=== PATIENT | male | born 1975 | race Caucasian/White ===

== ENCOUNTER → 2016-07-30 | Outpatient (CLI) | payer OTHER ==
[~2016-07-30] MED LIST: CITA20TA4 PO; CITA40TA12 PO; CLON1TAB3 PO; DIPH25CA65 PO; LTHSR450 PO; TRAZ100T29 PO
[2016-07-30 17:31] LABS: BASO % 0.6 %; BASO ABS # 0.04 K/uL (0-0.2); COMPLETE YES; EOS % 2.4 %; HEMATOCRIT 42.8 % (42-52); IG% 0.3 %; LYMPH % 26.7 %; LYMPH ABS # 1.88 K/uL (1.2-3.4); MEAN CELL VOLUME 93.9 fL (80-100); MEAN CORPUSCULAR HEMOGLOBIN 31.8 pg (25-34); MEAN CORPUSCULAR HGB CONC 33.9 g/dl (32-36); MEAN PLATELET VOLUME 11.7 fL (7.4-10.4); PLATELET COUNT 168 K/uL (130-400); RED BLOOD COUNT 4.56 M/uL (4.7-6.1); WHITE BLOOD COUNT 7.05 K/uL (4.8-10.8)
[2016-07-30 17:59] LABS: ALT/SGPT 30 U/L (12-78); AST/SGOT 15 U/L (15-37); BLOOD UREA NITROGEN 13 mg/dl (7-18); BUN/CREATININE RATIO 9.6 (10-20); CALCIUM 9.4 mg/dl (8.5-10.1); CARBON DIOXIDE 28 mmol/L (21-32); CHLORIDE 108 mmol/L (98-107); GLUCOSE 94 mg/dl (70-99); POTASSIUM 4.5 mmol/L (3.5-5.1); SODIUM 141 mmol/L (136-145)
[2016-07-30 18:10] LABS: ALB/GLOB RATIO 1.7 (0.9-2); ALKALINE PHOSPHATASE 54 U/L (45-117)
== END | disposition home or self-care (01) ==
LOC: C.LABBFT 14:57
PROVIDERS: ATTEND Internal Medicine
DX: R19.7 Diarrhea, unspecified (principal); Z79.899 Other long term (current) drug therapy; Z51.81 Encounter for therapeutic drug level monitoring

== ENCOUNTER → 2016-08-10 | Outpatient (CLI) | payer OTHER ==
[2016-08-17 13:43] LABS: O&P SOURCE OTHER-STOOL
== END | disposition home or self-care (01) ==
LOC: C.LABSPEC 17:40
PROVIDERS: ATTEND Internal Medicine
DX: R19.7 Diarrhea, unspecified (principal)

== ENCOUNTER → 2016-08-19 | Outpatient (CLI) | payer OTHER ==
[2016-08-24 14:30] LABS: IGA SERUM 141 mg/dL (81-463); TIS TRANS IGA 1 U/mL (<4)
== END | disposition home or self-care (01) ==
LOC: C.LAB1850 12:17
PROVIDERS: ATTEND Internal Medicine
DX: F17.210 Nicotine dependence, cigarettes, uncomplicated (principal)

== ENCOUNTER → 2016-08-27 | Day surgery (SDC) | payer OTHER ==
[2016-08-26 15:34] VITALS: Ht 182.9 cm; Wt 83.6 kg
[~2016-08-27] VITALS: Ht 182.9 cm; Wt 83.6 kg
[~2016-08-27] MED LIST changes: -CITA20TA4 PO; -DIPH25CA65 PO; +LIDOCAINE HCL 2% 2 ML VIAL (20MG/ML) ONE; +PROPOFOL IV EMULSION 10 MG/ML 20 ML VIAL IV ONE
--- NOTE | 2016-08-27 08:58 | Endo History and Physical ---
History & Physical Date of Service: Aug 27, 2016. Chief Complaint: Diarrhea, Change in bowel habits Referring Physician: Dr. Romo History of Present Illness 41 yo CM who presents for colonoscopy secondary to diarrhea and change in bowel habits. Past Surgical History Hx Cardiac Surgery: No Hx Internal Defibrillator: No Hx Pacemaker: No Hx Abdominal Surgery: Yes (RT/LEFT INGUINAL HERNIA) Hx of Implantable Prosthesis: No Hx Post-Op Nausea and Vomiting: No Hx Cancer Surgery: No Hx Thoracic Surgery: No Hx Orthopedic: Yes (LEFT THUMB REPAIR) Hx Urinary Tract Surgery: No Family History None Social History Smoking Status: Current Every Day Smoker Hx Substance Use: No Hx Alcohol Use: No (QUIT DRINKING 7 MONTHS AGO) Allergies Coded Allergies: No Known Allergies (Verified , 08/27/16) Current Medications Reported Home Medications Medications Dose Route/Sig Max Daily Dose Days Date Category Klonopin (Clonazepam) 1 Mg Tab 1 Mg PO TID 08/26/16 Reported Trazodone (Trazodone HCl) 100 Mg Tab 200 Mg PO HS 08/26/16 Reported [place] Carbonate ER ([place] Carbonate) 450 Mg Tabcr 1 Tab PO BID 08/26/16 Reported Celexa (Citalopram Hydrobromide) 40 Mg Tab 40 Mg PO QAM 08/26/16 Reported Vital Signs Weight (Kilograms): 83.64 Height (Feet): 6 Height (Inches): 0 Physical Exam General Appearance: WD/WN, no apparent distress Respiratory/Chest: Auscultation: breath sounds normal Cardiovascular: Heart Auscultation: RRR Abdomen: Bowel Sounds: normal Inspection & Palpation: soft, non-distended, no tenderness, guarding & rebound Assessment and Plan Assessment: 41 yo CM who presents for colonoscopy secondary to diarrhea and change in bowel habits. Plan: Proceed with colonoscopy.
--- NOTE | 2016-08-27 10:27 | Discharge Instructions ---
Endoscopy Patient Instructions Date / Procedure(s) Performed Aug 27, 2016. Colonoscopy Allergy Information Coded Allergies: No Known Allergies (Verified , 08/27/16) Discharge Date / Findings Aug 27, 2016. Random colon biopsies Stool studies Medication Instructions Random colon biopsies Stool studies Provider Instructions Activity Restrictions - No exercising or heavy lifting for 24 hours. - Do not drink alcohol the day of the procedure. - Do not drive a car or operate machinery until the day after the procedure. - Do not make any important decisions or sign important papers in 24 hours after the procedure. Following Day: - Return to full activity which may include returning to work/school. Diet Start your diet with liquids and light foods (jello, soup, juice, toast). Then eat your usual diet if not nauseated. Treatment For Common After Affects For mild abdominal pain, bloating, or excessive gas: - Rest - Eat lightly - Lie on right side Follow-Up Information Follow-up with Dr. Tarah Romo as scheduled Anesthesia Information What You Should Know You have had a procedure that required some medicine to reduce anxiety and discomfort. This treatment is called moderate sedation. After receiving the treatment, you may be sleepy, but you will be able to breathe on your own. The effects of the treatment may last for several hours. Follow these instructions along with Activity/Diet recommendations noted above: * Do NOT do anything where dizziness or clumsiness would be dangerous. * Rest quietly at home today, then you can be up and about tomorrow. * Have a responsible person stay with you the rest of today. * You may have had an I.V. today. If so, you may take the dressing off later today. Recommendations Call your doctor if: * Trouble breathing * Continuous vomiting for more than 24 hours * Temperature above 101 degrees * Severe abdominal pain or bloating * Pain not relieved by pain medicine ordered * There is increased drainage or redness from any incision * A large amount of rectal bleeding greater than 2-3 tablespoons. (If you had a polyp/s removed or have hemorrhoids, a small amount of blood - from the rectum is to be expected.) * You have any unanswered questions or concerns. IN THE EVENT OF A SERIOUS EMERGENCY, GO TO THE NEAREST EMERGENCY ROOM Your discharge instructions were prepared by provider Keo Yates. Patient Instructions Signature Page Keshawn Guillermo Patient (or Guardian) Signature/Date: I have read and understand the instructions given to me by my caregivers. Caregiver/RN/Doctor Signature/Date: The above-named patient and/or guardian has received patient instructions on this date. + Original Patient Signature Page (only) stays with chart. Please make copy for patient.
--- NOTE | 2016-08-27 10:33 | GI REPORT ---
Procedure Date: 08/27/2016 9:50 AM Procedure: Colonoscopy Indications: Chronic diarrhea Medicines: Monitored Anesthesia Care Complications: No immediate complications. Estimated Blood Loss: Estimated blood loss: none. Procedure: Pre-Anesthesia Assessment: - Prior to the procedure, a History and Physical was performed, and patient medications and allergies were reviewed. The patient's tolerance of previous anesthesia was also reviewed. The risks and benefits of the procedure and the sedation options and risks were discussed with the patient. All questions were answered, and informed consent was obtained. Prior Anticoagulants: The patient has taken no previous anticoagulant or antiplatelet agents. ASA Grade Assessment: II - A patient with mild systemic disease. After reviewing the risks and benefits, the patient was deemed in satisfactory condition to undergo the procedure. After I obtained informed consent, the scope was passed under direct vision. Throughout the procedure, the patient's blood pressure, pulse, and oxygen saturations were monitored continuously. The scope was introduced through the anus and advanced to the terminal ileum. The colonoscopy was performed without difficulty. The patient tolerated the procedure well. The quality of the bowel preparation was good. The terminal ileum, ileocecal valve, appendiceal orifice, and rectum were photographed. Findings: The colon (entire examined portion) appeared normal. Several random biopsies were obtained with cold forceps for histology in the entire colon. Fluid aspiration for cytology was performed. Impression: - The entire examined colon is normal. Fluid aspiration performed. - Several random biopsies were obtained in the entire colon. Recommendation: - Resume previous diet. - Continue present medications. - Repeat colonoscopy for surveillance based on pathology results. - Return to primary care physician as previously scheduled. Keo Yates, DO 08/27/2016 10:33:00 AM This report has been signed electronically. Note Initiated On: 08/27/2016 9:50 AM I attest to the content of the Intraoperative Record and orders documented therein, exceptions below
[2016-08-27 11:10] VITALS: BP 108/68; PULSE 60; O2SAT 96
--- NOTE | 2016-08-27 12:05 | Anesthesiology Progress Note ---
Anesthesia Post Op Note Date & Time Aug 27, 2016 at 12:05 Vital Signs Pain Intensity: 0 Vital Signs Past 12 Hours Date Time Temp Pulse Resp B/P Pulse Ox O2 Delivery O2 Flow Rate FiO2 08/27/16 11:10 60 18 108/68 96 Room Air 08/27/16 11:00 68 18 98/60 97 Room Air 08/27/16 10:55 60 18 95/60 96 Room Air 08/27/16 10:40 60 18 100/62 96 Room Air 08/27/16 10:25 63 18 93/54 96 Room Air 08/27/16 08:58 36.5 74 18 122/71 96 Room Air Notes Mental Status: alert / awake / arousable, participated in evaluation Pt Amnestic to Procedure: Yes Nausea / Vomiting: adequately controlled Pain: adequately controlled Airway Patency, RR, SpO2: stable & adequate BP & HR: stable & adequate Hydration State: stable & adequate Anesthetic Complications: no major complications apparent
== END | disposition home or self-care (01) ==
LOC: C.GI 08:34
PROVIDERS: ATTEND Internal Medicine
DX: R19.7 Diarrhea, unspecified (principal); Z98.890 Other specified postprocedural states; F17.210 Nicotine dependence, cigarettes, uncomplicated